=== PATIENT | female | born 1975 | race Caucasian/White ===

== ENCOUNTER 2020-07-20 14:54 | Emergency (ER) | payer MEDICAID ==
[~2020-07-20] VITALS: Ht 160 cm; Wt 91.0 kg
[2020-07-20 16:15] VITALS: BP 122/84
== END 2020-07-20 16:28 | disposition home or self-care (01) ==
LOC: ER 14:54
DX: J45.901 Unspecified asthma with (acute) exacerbation (principal); J02.9 Acute pharyngitis, unspecified; F17.200 Nicotine dependence, unspecified, uncomplicated; Z86.73 Personal history of transient ischemic attack (TIA), and cerebral infarction without residual deficits; Z87.09 Personal history of other diseases of the respiratory system; Z20.828 Contact with and (suspected) exposure to other viral communicable diseases
CPT/HCPCS: 87635; 99283; C9803; 99281

== ENCOUNTER 2020-08-22 13:23 | Emergency (ER) | payer MEDICAID ==
[~2020-08-22] VITALS: Ht 157.5 cm; Wt 110.0 kg
[2020-08-22] MEDS: IBUPROFEN 600MG TABLET PO ONE (15:04)
[2020-08-22] MEDS: LORAZEPAM 0.5MG TABLET PO ONE (15:32)
[2020-08-22 17:07] VITALS: BP 124/76
== END 2020-08-22 16:45 | disposition home or self-care (01) ==
LOC: ER 13:23
DX: U07.1 COVID-19 (principal); F41.0 Panic disorder [episodic paroxysmal anxiety]; F43.0 Acute stress reaction; M25.562 Pain in left knee; R03.0 Elevated blood-pressure reading, without diagnosis of hypertension; E11.9 Type 2 diabetes mellitus without complications; F06.4 Anxiety disorder due to known physiological condition
CPT/HCPCS: 71045; 73562; 93005; 99284

== ENCOUNTER 2020-08-30 14:33 | Emergency (ER) | payer MEDICAID ==
[~2020-08-30] VITALS: Ht 157.5 cm; Wt 113.0 kg
[2020-08-30 14:42] VITALS: BP 144/89
== END 2020-08-30 16:48 | disposition left against medical advice (07) ==
LOC: ER 14:33
DX: J02.9 Acute pharyngitis, unspecified (principal); E11.9 Type 2 diabetes mellitus without complications; I10 Essential (primary) hypertension; Z53.21 Procedure and treatment not carried out due to patient leaving prior to being seen by health care provider
CPT/HCPCS: 99281

== ENCOUNTER 2020-12-16 07:50 | Emergency (ER) | payer MEDICAID ==
[~2020-12-16] VITALS: Ht 157.5 cm; Wt 120.0 kg
[2020-12-16 08:01] VITALS: BP 163/101
[2020-12-16] MEDS ORDERED: GUAI-453 MT (10:48)
[2020-12-16] MEDS ORDERED: AZIT250T12 MT (10:48)
[2020-12-16] MEDS ORDERED: BECL10.62 INH (10:48)
== END 2020-12-16 11:04 | disposition home or self-care (01) ==
LOC: ER 07:59
DX: J40 Bronchitis, not specified as acute or chronic (principal); I83.92 Asymptomatic varicose veins of left lower extremity; I10 Essential (primary) hypertension; E11.9 Type 2 diabetes mellitus without complications; Z98.890 Other specified postprocedural states
CPT/HCPCS: 71045; 93970; 99284

== ENCOUNTER 2021-01-10 10:55 | Emergency (ER) | payer MEDICAID ==
[~2021-01-10] VITALS: Ht 157.5 cm; Wt 113.0 kg
[~2021-01-10 10:55] MED LIST: AZIT250T12 MT; BECL10.62 INH; GUAI-453 MT
[2021-01-10 11:14] VITALS: BP 142/70
[2021-01-10 12:04] LABS: BASOPHILS % 0.9 % (0.0-2.0); EOSINOPHILS % 2.8 % (0.0-5.0); HEMATOCRIT. 35.7 % (36.0-48.0); HEMOGLOBIN. 12.4 g/dL (12.0-16.0); MEAN CORPUSCULAR HEMOGLOBIN 28.5 pg (28.0-32.0); MEAN CORPUSCULAR VOLUME 81.9 fL (81.0-99.0); MONOCYTES % 5.7 % (2.0-8.0); NEUTROPHILS % 68.6 % (40.0-76.0); RED BLOOD CELL COUNT 4.36 mill/uL (4.2-5.4); RED CELL DISTRIBUTION WIDTH 14.4 % (11.6-14.6)
[2021-01-10 12:08] LABS: CHLORIDE 105 mEq/L (98-107)
[2021-01-10 12:09] LABS: INR 0.9; PROTHROMBIN TIME 10.1 sec (9.6-11.0)
[2021-01-10 12:14] LABS: ETHANOL BLOOD < 10 mg/dL
[2021-01-10 12:20] LABS: HCG SCREEN NEGATIVE
[2021-01-10] MEDS ORDERED: VISCOUS LIDOCAINE 2% 15 ML UDC MM STA (12:23)
[2021-01-10] MEDS ORDERED: MAGNESIUM/ALUMINUM HYDROXIDE/SIMETHICONE 30ML UDC PO ONE (12:30)
[2021-01-10] MEDS ORDERED: ONDA4TAB5 MT (12:53)
[2021-01-10] MEDS ORDERED: OMEP20CA14 MT (12:53)
[2021-01-10 13:21] LABS: MEAN PLATELET VOLUME 9.1 fl (7.4-10.4); PLATELET 279 x1000/uL (130-400)
== END 2021-01-10 13:40 | disposition home or self-care (01) ==
LOC: ER 10:55
DX: R10.13 Epigastric pain (principal); E11.9 Type 2 diabetes mellitus without complications; I10 Essential (primary) hypertension; J45.909 Unspecified asthma, uncomplicated; Z88.5 Allergy status to narcotic agent; Z88.8 Allergy status to other drugs, medicaments and biological substances; Z87.19 Personal history of other diseases of the digestive system; Z79.899 Other long term (current) drug therapy; Z98.890 Other specified postprocedural states
CPT/HCPCS: 36415; 80053; 80320; 84703; 85025; 93005; 99284; G0480

== ENCOUNTER 2021-03-30 13:41 | Emergency (ER) | payer MEDICAID ==
[~2021-03-30] VITALS: Ht 165.1 cm; Wt 100.0 kg
[~2021-03-30 13:41] MED LIST changes: +OMEP20CA14 MT; +ONDA4TAB5 MT
[2021-03-30] MEDS ORDERED: KETOROLAC 60MG/2ML VIAL IM ONE (15:45)
[2021-03-30] MEDS ORDERED: NAPR-679 MT (17:03)
[2021-03-30] MEDS ORDERED: TRAM50TA MT (17:03)
[2021-03-30 17:47] VITALS: BP 127/71
== END 2021-03-30 17:49 | disposition home or self-care (01) ==
LOC: ER 13:41
DX: M17.0 Bilateral primary osteoarthritis of knee (principal); I10 Essential (primary) hypertension; Z68.36 Body mass index [BMI] 36.0-36.9, adult; E66.01 Morbid (severe) obesity due to excess calories; M54.2 Cervicalgia; M54.9 Dorsalgia, unspecified; Z79.899 Other long term (current) drug therapy
CPT/HCPCS: 73560; 81025; 96372; 99283; J1885; Z7610

== ENCOUNTER 2022-04-04 12:26 | Emergency (ER) | payer MEDICAID ==
[~2022-04-04] VITALS: Ht 160 cm; Wt 118.0 kg
[~2022-04-04 12:26] MED LIST changes: +NAPR-679 MT
[2022-04-04] MEDS ORDERED: FAMOTIDINE 20MG/2ML VIAL IV STA (13:00)
[2022-04-04] MEDS ORDERED: ONDANSETRON HCL 4MG/2ML INJ IV STA (13:00)
[2022-04-04 13:40] LABS: CLARITY URINE CLEAR (CLEAR); COLOR URINE YELLOW (YELLOW); KETONES URINE TRACE (NEGATIVE); LEUKOCYTE ESTERASE URINE TRACE (NEGATIVE); NITRITE URINE NEGATIVE (NEGATIVE); OCCULT BLOOD URINE NEGATIVE (NEGATIVE); PROTEIN URINE NEGATIVE (NEGATIVE); SPECIFIC GRAVITY URINE 1.025 (1.005-1.030)
[2022-04-04 13:43] LABS: CHLORIDE 104 mEq/L (98-107)
[2022-04-04 15:29] LABS: BASOPHILS % 0.4 % (0.0-2.0); EOSINOPHILS % 1.4 % (0.0-5.0); HEMATOCRIT. 42.9 % (36.0-48.0); HEMOGLOBIN. 13.3 g/dL (12.0-16.0); LYMPHOCYTES % 15.9 % (20.0-50.0); MEAN CORPUSCULAR HEMOGLOBIN 28.1 pg (28.0-32.0); MEAN CORPUSCULAR VOLUME 90.7 fL (81.0-99.0); MONOCYTES % 6.6 % (2.0-8.0); NEUTROPHILS % 75.7 % (40.0-76.0); PLATELET 218 x1000/uL (130-400); RED BLOOD CELL COUNT 4.73 mill/uL (4.2-5.4); RED CELL DISTRIBUTION WIDTH 15.8 % (11.6-14.6)
[2022-04-04] MEDS ORDERED: ONDA4TAB11 PO (15:45)
[2022-04-04] MEDS ORDERED: OMEP20CA14 MT (15:45)
[2022-04-04] MEDS ORDERED: IMOD MT (15:45)
[2022-04-04 15:59] VITALS: BP 126/87
== END 2022-04-04 16:01 | disposition home or self-care (01) ==
LOC: ER 13:26
DX: K80.80 Other cholelithiasis without obstruction (principal); K40.90 Unilateral inguinal hernia, without obstruction or gangrene, not specified as recurrent; I11.0 Hypertensive heart disease with heart failure; I50.9 Heart failure, unspecified
CPT/HCPCS: 36415; 74176; 80053; 81003; 82962; 83690; 85025; 93005; 96374; 96375; 99285; J2405; J3490

== ENCOUNTER 2022-05-03 05:57 | Emergency (ER) | payer MEDICAID ==
[~2022-05-03] VITALS: Ht 157.5 cm; Wt 122.4 kg
[~2022-05-03 05:57] MED LIST changes: +IMOD MT; +ONDA4TAB11 PO
[2022-05-03 06:08] VITALS: BP 138/73
[2022-05-03] MEDS ORDERED: ACETAMINOPHEN 325MG TABLET PO ONE (07:00)
[2022-05-03] MEDS ORDERED: METOCLOPRAMIDE HCL 5MG TABLET PO ONE (07:00)
[2022-05-03] MEDS ORDERED: ONDA4TAB50 MT (09:58)
[2022-05-03] MEDS ORDERED: ACET-2708 MT (09:58)
== END 2022-05-03 10:45 | disposition home or self-care (01) ==
LOC: ER 06:05
DX: B34.9 Viral infection, unspecified (principal); R51.9 Headache, unspecified; Z00.00 Encounter for general adult medical examination without abnormal findings; F41.9 Anxiety disorder, unspecified; J45.909 Unspecified asthma, uncomplicated; I50.9 Heart failure, unspecified; F32.9 Major depressive disorder, single episode, unspecified; E11.9 Type 2 diabetes mellitus without complications; Z79.899 Other long term (current) drug therapy; Z20.822 Contact with and (suspected) exposure to COVID-19
CPT/HCPCS: 87426; 99283; C9803; J8597

== ENCOUNTER 2022-06-24 14:09 | Emergency (ER) | payer MEDICAID ==
[~2022-06-24] VITALS: Ht 160 cm; Wt 80.0 kg
[~2022-06-24 14:09] MED LIST changes: +ACET-2708 MT; +ONDA4TAB50 MT
[2022-06-24 14:17] VITALS: BP 112/43
[2022-06-24] MEDS ORDERED: CIPHCO RIGHT EAR (15:41)
== END 2022-06-24 18:04 | disposition home or self-care (01) ==
LOC: ER 14:09
DX: H60.501 Unspecified acute noninfective otitis externa, right ear (principal); R05.9 Cough, unspecified; F41.9 Anxiety disorder, unspecified; J45.909 Unspecified asthma, uncomplicated; I50.9 Heart failure, unspecified; F32.9 Major depressive disorder, single episode, unspecified; E11.9 Type 2 diabetes mellitus without complications; Z79.899 Other long term (current) drug therapy
CPT/HCPCS: 99281; 99283

== ENCOUNTER 2024-03-14 07:41 | Emergency (ER) | payer MEDICAID, OTHER ==
[~2024-03-14] VITALS: Ht 165.1 cm; Wt 104.0 kg
[~2024-03-14 07:41] MED LIST changes: +CIPHCO RIGHT EAR
[2024-03-14 07:45] VITALS: O2SAT 100
[2024-03-14] MEDS ORDERED: DEXAMETHASONE 4MG TABLET PO ONE (08:30)
[2024-03-14] MEDS: AMOXICILLIN/POTASSIUM CLAVULANATE 875/125MG TAB PO ONE (08:43)
[2024-03-14] MEDS: KETOROLAC 30MG/ML VIAL IV ONE (08:43)
[2024-03-14] MEDS: ACETAMINOPHEN 325MG TABLET PO ONE (08:49)
[2024-03-14] MEDS: DEXAMETHASONE 10 MG/ML VIAL PO NR (08:51)
[2024-03-14] MEDS: KETOROLAC 30MG/ML VIAL IM ONE (08:51)
[2024-03-14] MEDS ORDERED: AMOX1TAB16 MT (08:52)
[2024-03-14 09:58] VITALS: BP 130/80; PULSE 81; RESP 18; TEMP 98.7
== END 2024-03-14 10:00 | disposition home or self-care (01) ==
LOC: ER 07:41
DX: J02.0 Streptococcal pharyngitis (principal); E11.9 Type 2 diabetes mellitus without complications; I50.9 Heart failure, unspecified; F32.A Depression, unspecified; J45.909 Unspecified asthma, uncomplicated; Z88.5 Allergy status to narcotic agent; Z88.6 Allergy status to analgesic agent; Z79.899 Other long term (current) drug therapy
CPT/HCPCS: 99284; 96374; 81025; J1100; J1885; J8540

== ENCOUNTER 2024-10-08 03:35 | Emergency (ER) | payer MEDICAID, OTHER ==
[~2024-10-08] VITALS: Ht 157.5 cm; Wt 110.0 kg
[~2024-10-08 03:35] MED LIST changes: +AMOX1TAB16 MT; +ONDA-239 PO; -ONDA4TAB11 PO
[2024-10-08 03:49] VITALS: BP 132/60; TEMP 36.7; O2SAT 98
[2024-10-08] MEDS: PREDNISONE 20MG TABLET PO ONE (04:56)
[2024-10-08] MEDS ORDERED: P20 MT (05:02)
[2024-10-08] MEDS ORDERED: AMOX-494 MT (05:02)
[2024-10-08] MEDS ORDERED: BENZ100C86 MT (05:02)
[2024-10-08] MEDS: IPRATROPIUM BROMIDE (0.02%) 0.5MG/2.5ML NEB HHN STA (05:07)
[2024-10-08 05:10] VITALS: PULSE 68; RESP 20; O2SAT 97
[2024-10-08 05:10] LABS: CLARITY URINE CLEAR (CLEAR); COLOR URINE YELLOW (YELLOW); GLUCOSE URINE NEGATIVE (NEGATIVE); KETONES URINE NEGATIVE (NEGATIVE); LEUKOCYTE ESTERASE URINE TRACE (NEGATIVE); NITRITE URINE NEGATIVE (NEGATIVE); OCCULT BLOOD URINE NEGATIVE (NEGATIVE); PH URINE 6.5 (4.5-8.0); PROTEIN URINE NEGATIVE (NEGATIVE); SPECIFIC GRAVITY URINE 1.016 (1.005-1.030)
[2024-10-08 05:10] LABS: BASOPHILS % 0.8 % (0.0-2.0); EOSINOPHILS % 6.8 % (0.0-5.0); HEMATOCRIT. 38.4 % (36.0-48.0); HEMOGLOBIN. 12.8 g/dL (12.0-16.0); LYMPHOCYTES % 29.1 % (20.0-50.0); MEAN CORPUSCULAR HEMOGLOBIN 28.1 pg (28.0-32.0); MEAN CORPUSCULAR HGB CONC 33.5 g/dL (31.0-37.0); MEAN CORPUSCULAR VOLUME 84.1 fL (81.0-99.0); MEAN PLATELET VOLUME 8.4 fl (7.4-10.4); MONOCYTES % 6.9 % (2.0-8.0); NEUTROPHILS % 56.4 % (40.0-76.0); PLATELET 258 x1000/uL (130-400); RED BLOOD CELL COUNT 4.56 mill/uL (4.2-5.4); RED CELL DISTRIBUTION WIDTH 14.2 % (11.6-14.6)
[2024-10-08] MEDS: ALBUTEROL (0.083%) 2.5MG/3ML NEB HHN STA (05:10)
[2024-10-08 05:28] LABS: SQUAMOUS EPITHELIAL CELL URINE 1+ /lpf (RARE/1+)
[2024-10-08 05:29] LABS: MUCUS URINE 1+ /lpf (< = 2+); RBC URINE 0-2 /hpf (0-2)
[2024-10-08 05:30] LABS: CHLORIDE 109 mEq/L (98-107); POTASSIUM 3.9 mEq/L (3.5-5.1); SODIUM 139 mEq/L (136-145)
[2024-10-08 05:30] LABS: BACTERIA URINE TRACE
[2024-10-08 05:31] LABS: CARBON DIOXIDE 22 mEq/L (21-32)
[2024-10-08 05:32] LABS: CALCIUM 8.9 mg/dL (8.7-10.4)
[2024-10-08 05:37] LABS: CREATININE 0.5 mg/dL (0.6-1.0); GLUCOSE 106 mg/dL (70-105); UREA NITROGEN BLOOD 5 mg/dL (9-23)
[2024-10-08 05:55] LABS: TROPONIN I HIGH SENSITIVITY < 4 ng/L (3.0-34)
== END 2024-10-08 05:54 | disposition home or self-care (01) ==
LOC: ER 03:35
DX: J40 Bronchitis, not specified as acute or chronic (principal); E11.9 Type 2 diabetes mellitus without complications; I50.9 Heart failure, unspecified; Z79.899 Other long term (current) drug therapy; Z88.5 Allergy status to narcotic agent; Z86.73 Personal history of transient ischemic attack (TIA), and cerebral infarction without residual deficits
CPT/HCPCS: 80048; 81003; 85025; 84484; 36415; 71045; 94640; 94070; 99284; J7512; Z7610 ×3; 94664; 98960

== ENCOUNTER 2024-10-25 21:51 | Emergency (ER) | payer OTHER ==
[~2024-10-25] VITALS: Ht 157.5 cm; Wt 112.0 kg
[~2024-10-25 21:51] MED LIST changes: +AMOX-494 MT; +BENZ100C86 MT; +P20 MT
[2024-10-25 22:11] VITALS: O2SAT 99
[2024-10-25 22:13] VITALS: TEMP 36.5
[2024-10-25 22:39] LABS: CLARITY URINE CLEAR (CLEAR); COLOR URINE YELLOW (YELLOW); GLUCOSE URINE NEGATIVE (NEGATIVE); KETONES URINE NEGATIVE (NEGATIVE); LEUKOCYTE ESTERASE URINE 1+ (NEGATIVE); NITRITE URINE NEGATIVE (NEGATIVE); OCCULT BLOOD URINE NEGATIVE (NEGATIVE); PROTEIN URINE NEGATIVE (NEGATIVE); SPECIFIC GRAVITY URINE 1.025 (1.005-1.030)
[2024-10-25 22:52] LABS: BACTERIA URINE TRACE; RBC URINE 0-2 /hpf (0-2); SQUAMOUS EPITHELIAL CELL URINE FEW /lpf (RARE/1+)
[2024-10-25 23:02] LABS: BASOPHILS % 0.6 % (0.0-2.0); HEMATOCRIT. 36.9 % (36.0-48.0); HEMOGLOBIN. 12.7 g/dL (12.0-16.0); LYMPHOCYTES % 30.3 % (20.0-50.0); MEAN CORPUSCULAR HEMOGLOBIN 27.8 pg (28.0-32.0); MEAN CORPUSCULAR HGB CONC 34.4 g/dL (31.0-37.0); MEAN CORPUSCULAR VOLUME 80.9 fL (81.0-99.0); MEAN PLATELET VOLUME 8.1 fl (7.4-10.4); MONOCYTES % 5.8 % (2.0-8.0); NEUTROPHILS % 59.3 % (40.0-76.0); PLATELET 262 x1000/uL (130-400); RED BLOOD CELL COUNT 4.57 mill/uL (4.2-5.4); RED CELL DISTRIBUTION WIDTH 14.4 % (11.6-14.6); WHITE BLOOD COUNT 9.2 x1000/uL (4.5-11.0)
[2024-10-25 23:12] LABS: CARBON DIOXIDE 27 mEq/L (21-32); CHLORIDE 106 mEq/L (98-107); POTASSIUM 3.9 mEq/L (3.5-5.1); SODIUM 140 mEq/L (136-145)
[2024-10-25 23:13] LABS: CALCIUM 8.9 mg/dL (8.7-10.4)
[2024-10-25 23:18] LABS: CREATININE 0.7 mg/dL (0.6-1.0); GLUCOSE 132 mg/dL (70-105); UREA NITROGEN BLOOD 15 mg/dL (9-23)
[2024-10-25 23:19] LABS: ALANINE AMINOTRANSFERASE 77 IU/L (10-49); ALBUMIN 3.7 g/dL (3.2-4.8); ASPARTATE AMINOTRANSFERASE 190 IU/L (<34)
[2024-10-25 23:20] LABS: BILIRUBIN TOTAL 0.7 mg/dL (0.1-1.0); PROTEIN TOTAL 7.1 g/dL (6.0-8.3)
[2024-10-26] MEDS ORDERED: METRONIDAZOLE 1000 MG PREMIX 200 ML IV SCH (01:15)
[2024-10-26] MEDS: ACETAMINOPHEN 325MG TABLET PO ONE (02:03)
[2024-10-26] MEDS: ONDANSETRON HCL 4MG TABLET PO ONE (02:03)
[2024-10-26] MEDS: CEFTRIAXONE 1GM/50ML 50 ML IV NR (02:03)
[2024-10-26] MEDS: METRONIDAZOLE 500MG PREMIX 100ML IV NR (02:20)
[2024-10-26] MEDS ORDERED: CIPR500T5 MT (02:51)
[2024-10-26] MEDS ORDERED: METR375C2 MT (02:51)
[2024-10-26 03:22] VITALS: BP 124/71; PULSE 70; RESP 18; O2SAT 99
== END 2024-10-26 03:24 | disposition home or self-care (01) ==
LOC: ER 21:51
DX: K81.9 Cholecystitis, unspecified (principal); E11.9 Type 2 diabetes mellitus without complications; I50.9 Heart failure, unspecified; J45.909 Unspecified asthma, uncomplicated; M19.90 Unspecified osteoarthritis, unspecified site; Z79.1 Long term (current) use of non-steroidal anti-inflammatories (NSAID); Z79.51 Long term (current) use of inhaled steroids; Z79.899 Other long term (current) drug therapy; Z86.73 Personal history of transient ischemic attack (TIA), and cerebral infarction without residual deficits; Z88.5 Allergy status to narcotic agent; Z98.51 Tubal ligation status
CPT/HCPCS: 99285; 80053; 81003; 83690; 85025; 36415; 96374; 76700; 96375; Q0162; J0696; J3490